=== PATIENT | female | born 1960 | race Caucasian/White ===

== ENCOUNTER → 2025-03-08 09:00 | Outpatient (REF) | payer OTHER, SELFPAY | LOC: HWRAD 09:00 | PROVIDERS: ATTENDING PHYSICIAN Obstetrics & Gynecology Gynecology; FAMILY PHYSICIAN Student in an Organized Health Care Education/Training Program | DX: Z13.820 Encounter for screening for osteoporosis (principal); Z12.31 Encounter for screening mammogram for malignant neoplasm of breast | CPT/HCPCS: 77080 ==

== ENCOUNTER 2025-04-28 10:44 | Emergency (ER) | payer OTHER, SELFPAY ==
[2025-04-28] VITALS (26 sets, daily range): BP systolic 99–138; BP diastolic 66–83; BMI 37.5
--- NOTE | 2025-04-28 10:55 | ED.GENMED ---
History of Present Illness
<Parag Huffman PA-C - Last Filed: 04/28/25 15:11>
General
Chief Complaint: Musculo-Skeletal Complaint
Time Seen by Provider: 04/28/25 10:46
History of Present Illness
History of Present Illness:
64-year-old female presents the emergency department for evaluation of right hip pain and deformity. States that she twisted while walking this morning and felt a sudden pop and thus was unable to ambulate thereafter. She is approximately 1 year
status post right total hip arthroplasty performed at this hospital by Dr. Villa. Denies any distal paresthesias. Last p.o. intake was liquid at 930 today, no solid food intake
Past History
<MARION Vilchis Last Filed: 04/28/25 15:11>
Past History
ED Past Medical History: None
Social History
Tobacco: Non-smoker
Personal:
Living: with family
Employment: Employed
Review of Systems
<Parag Huffman PA-C - Last Filed: 04/28/25 15:11>
Review of Systems
Allergies reviewed?: Yes
All Other Systems: ROS reviewed and negative except as documented in HPI and ROS
Phy Exam
<MARION Vilchis Last Filed: 04/28/25 15:11>
Physical Exam
Physical Exam:
GEN: Well appearing, NAD, WDWN
HEENT: Oral mucosa moist, no scleral icterus
Cardiac: Regular rate
Lung: No respiratory distress, no tachypnea
MSK: Internal rotation and shortening right lower extremity with exquisite hip tenderness
Skin: Good color, no pallor or jaundice, no rashes
Neuro: AO x3, moves all extremities freely
Psych: Calm, cooperative
Course
<Parag Huffman PA-C - Last Filed: 04/28/25 15:11>
Orders/Labs/Results
Orders:
Orders
04/28/25 10:51
CR Hip - RT w/wo Pel 2-3 Vw* Urgent
Comment:
Reason For Exam: R hip dislocation
Include a pelvis x-ray?: No
04/28/25 11:08
HYDROmorphone [Dilaudid] 0.5 mg IV NOW STA
04/28/25 11:23
Ondansetron Injectable [Zofran] 4 mg .ROUTE .STK-MED ONE
04/28/25 11:24
Ondansetron Injectable [Zofran] 4 mg IV NOW STA
04/28/25 12:30
Fentanyl Citrate/Pf [Sublimaze] 100 mcg IV NOW STA
04/28/25 12:33
Propofol [Diprivan] 20 ml .ROUTE .STK-MED
04/28/25 13:13
Propofol [Diprivan] 20 ml .ROUTE .STK-MED
04/28/25 13:14
CR Hip - RT without Pel 1 Vw Stat
Comment:
Reason For Exam: s/p hip reduction
Vital Signs
Initial and Last Documented VS:
Initial Vital Signs
Temp Pulse Resp Pulse Ox
97.7 F 54 13 100
04/28/25 10:46 04/28/25 10:46 04/28/25 10:46 04/28/25 10:46
Last Documented Vital Signs
Temp Pulse Resp BP Pulse Ox
98.5 F 59 13 126/77 99
04/28/25 13:34 04/28/25 13:51 04/28/25 13:51 04/28/25 13:51 04/28/25 13:49
<Davi Strange MD - Last Filed: 04/28/25 13:43>
Orders/Labs/Results
Orders:
Orders
04/28/25 10:51
CR Hip - RT w/wo Pel 2-3 Vw* Urgent
Comment:
Reason For Exam: R hip dislocation
Include a pelvis x-ray?: No
04/28/25 11:08
HYDROmorphone [Dilaudid] 0.5 mg IV NOW STA
04/28/25 11:23
Ondansetron Injectable [Zofran] 4 mg .ROUTE .STK-MED ONE
04/28/25 11:24
Ondansetron Injectable [Zofran] 4 mg IV NOW STA
04/28/25 12:30
Fentanyl Citrate/Pf [Sublimaze] 100 mcg IV NOW STA
04/28/25 12:33
Propofol [Diprivan] 20 ml .ROUTE .STK-MED
04/28/25 13:13
Propofol [Diprivan] 20 ml .ROUTE .STK-MED
04/28/25 13:14
CR Hip - RT without Pel 1 Vw Stat
Comment:
Reason For Exam: s/p hip reduction
Vital Signs
Initial and Last Documented VS:
Initial Vital Signs
Temp Pulse Resp Pulse Ox
97.7 F 54 13 100
04/28/25 10:46 04/28/25 10:46 04/28/25 10:46 04/28/25 10:46
Last Documented Vital Signs
Temp Pulse Resp BP Pulse Ox
98.5 F 59 13 126/77 99
04/28/25 13:34 04/28/25 13:51 04/28/25 13:51 04/28/25 13:51 04/28/25 13:49
Procedures
<Parag Huffman PA-C - Last Filed: 04/28/25 15:11>
Moderate Sedation
ASA Risk Score: Class II
Chart and allergies reviewed: Yes
Consent for anesthesia obtained: Yes
Time out completed (validating right patient & procedure): Yes
Moderate Sedation Start Time(when first medication is given): 13:09
History of difficult intubation: No
Airway free of obstruction: Yes
Patient has a gag reflex: Yes
Patient is able to open mouth: Yes
Patient has no dentures: Yes
Patient has no loose teeth: Yes
Medication administered by Provider during Moderate Sedation: IV Propofol (mg)
Total dose administered: 140
Time drug administered: 13:09
Moderate Sedation Procedure End Time: 13:19
Joint/Fracture Reduction
R hip arthroplasty:
Indication for procedure:: dislocated R FABIOLA
Procedure completed by: Parag Huffman PA-C
Consent form signed: Yes
Joint reduced: with anesthesia sedation
Injury was: closed
Further treatement: needs re-check only
Post reduction exam: stable
Capillary Refill: normal
Normal distal neurovascular exam?: Yes
<Parag Huffman PA-C - Last Filed: 04/28/25 15:11>
MDM/Problems Addressed
MDM/Problems Addressed:
Patient underwent reduction under conscious sedation with good results. Given knee immobilizer and hip precautions discussed, will follow-up as an outpatient with orthopedics
<Parag Huffman PA-C - Last Filed: 04/28/25 15:11>
*Pulse Oximetry
SaO2: 100
Oxygen Mode of Delivery: Room air
Patient hypoxic: no
*Critical Care Note
Total Time (30-74mins, 75-104mins- exclusive of procedures): Not Applicable
ED Attending Note
<Parag Huffman PA-C - Last Filed: 04/28/25 15:11>
-
Portions of this chart may have been created with voice recognition software.� Occasional wrong word or��sound alike� substitutions may have occurred due to the inherent limitations of voice recognition software.
<Davi Strange MD - Last Filed: 04/28/25 13:43>
ED Attending Note
Patient seen and examined by attending physician: Yes
I performed the substantive portion of visit, reviewed & personally made and approve the management plan that is documented in note by myself or NATALIE.: Yes
ED Attending Note:
64-year-old female dislocated her right prosthetic hip this morning. Hip surgery was 15 months ago. No issues with the hip previously. No other injury or complaint
On exam right leg is shortened and internally rotated. Good distal pulses and color. Airway is clear. Heart regular rate and rhythm. Lungs are clear and equal. No false teeth or dentures.
Dislocated right prosthetic hip. Consent signed. Risks explained.
Hip was reduced with Gopal Huffman with 140 of propofol. Reduction went smooth. Post hip x-ray is reduced. Knee immobilizer and follow-up
Discharge Plan
Departure
Patient Disposition: Home (Routine Discharge)
Date of Disposition: 04/28/25
Time of Disposition: 14:12
Patient with high blood pressure during this ER visit?: No
Discharge Problem:
Dislocation of internal right hip prosthesis
Instructions: Hip Dislocation (DC)
Prescriptions:
No Action
magnesium Tablet
1 tab PO DAILY
cholecalciferol (vitamin D3) [Vitamin D3] 50 mcg (2,000 unit) Capsule
50 mcg PO DAILY
Referrals:
Tonia Strauss MD [Family Provider, Family Practice]
Interventions
Interventions:
*Risk Screen - Suicide Last Done: 04/28/25 11:00
*General Assessment Last Done: 04/28/25 11:00
*Neglect/Abuse Screening Last Done: 04/28/25 11:00
*ED- Fall Risk Assessment Last Done: 04/28/25 11:00
*ED COVID-19 Vaccine History Last Done: 04/28/25 11:00
Discharge Date and Time
Print Language: MACEDONIAN
[2025-04-28] MEDS: DILAUDID 0.5 MG IV (11:25)
[2025-04-28] MEDS: ZOFRAN 4 MG IV (11:25)
[2025-04-28] MEDS: SUBLIMAZE 100 MCG IV (12:37)
== END 2025-04-28 15:15 | disposition home or self-care (01) ==
LOC: EMR 10:44
PROVIDERS: EMERGENCY PHYSICIAN Emergency Medicine; FAMILY PHYSICIAN Student in an Organized Health Care Education/Training Program
DX: T84.020A Dislocation of internal right hip prosthesis, initial encounter (principal); X50.1XXA Overexertion from prolonged static or awkward postures, initial encounter; Y79.2 Prosthetic and other implants, materials and accessory orthopedic devices associated with adverse incidents; Y93.01 Activity, walking, marching and hiking
CPT/HCPCS: 99283; 27265; 96374; 96375; 73501; 73502

== ENCOUNTER → 2025-08-01 10:31 | Outpatient (REF) | payer OTHER, SELFPAY | LOC: HWWDC 10:31 | PROVIDERS: ATTENDING PHYSICIAN Obstetrics & Gynecology Gynecology; FAMILY PHYSICIAN Student in an Organized Health Care Education/Training Program | DX: Z12.31 Encounter for screening mammogram for malignant neoplasm of breast (principal) | CPT/HCPCS: 77063; 77067 ==